=== PATIENT | female | born 1985 | race Caucasian/White ===

== ENCOUNTER → 2017-07-23 16:03 | Outpatient (CLI) | payer MEDICAID, SELFPAY | PROVIDERS: PCP Obstetrics & Gynecology; Visit Provider Obstetrics & Gynecology | DX: Z34.90 Encounter for supervision of normal pregnancy, unspecified, unspecified trimester (principal) | CPT/HCPCS: 86403 ==

== ENCOUNTER → 2017-08-12 10:48 | Outpatient (CLI) | payer MEDICAID, SELFPAY ==
[2017-08-12 10:51] LABS: Microscopic, Urine URINE MICROSCOPIC (MICROSCOPIC)
[2017-08-12 11:12] LABS: Basophils % 0.3 % (0.1-2.0); Eosinophils # 0.1 K/mm3 (0.0-0.4); Hematocrit 36.4 % (37.0-47.0); Hemoglobin 12.2 g/dL (12.2-16.2); Lymphocytes # 1.9 K/mm3 (0.7-4.5); Lymphocytes % 19.3 K/mm3 (10-50); Mean Corpuscular HGB Conc 33.4 g/dL (31.8-35.4); Mean Corpuscular Hemoglobin 27.9 pg (27.0-31.2); Mean Corpuscular Volume 83.6 fl (81-99); Mean Platelet Volume 9.2 fl (7.4-10.4); Monocytes # 0.4 K/mm3 (0.1-1.0); Monocytes % 4.3 % (1.7-9.3); Neutrophils # 7.3 K/mm3 (1.8-7.8); Neutrophils % 75.2 % (37.0-80.0); Platelet Count 196 K/mm3 (142-424); Red Blood Count 4.36 M/mm3 (4.20-5.40); Red Cell Distribution Width 13.8 % (11.5-17.5); White Blood Count 9.7 K/mm3 (4.8-10.8)
[2017-08-12 11:13] LABS: Appearance,Urine CLEAR (Clear); Bilirubin,Urine Negative (Negative); Blood, Urine Negative (Negative); Color,Urine YELLOW (Yellow); Glucose,Urine (UA) Negative (Negative); Ketones,Urine Negative (Negative); Leukocyte Esterase,Urine Negative (Negative); Nitrate,Urine Negative (Negative); Protein,Urine Negative (Negative); Specific Gravity, Urine 1.015 (1.005-1.030); Urobilinogen,Urine 0.2 EU/dl (0.2)
[2017-08-12 11:30] LABS: Bacteria,Urine Trace /lpf; RBC,Urine Occasional #/hpf (0-3); Squamous Epithelial Cell,Urine Occasional #/hpf (0-5)
[2017-08-12 13:12] LABS: Alanine Aminotransferase 25 U/L (12-78); Albumin Level 2.4 gm/dL (3.4-5.0); Albumin/Globulin Ratio 0.6 (1.1-1.8); Alkaline Phosphatase 170 U/L (46-116); Anion Gap 13.1 mEq/L (5-15); Aspartate Amino Transferase 15 U/L (15-37); Bilirubin,Total 0.3 mg/dL (0.2-1.0); Blood Urea Nitrogen 8 mg/dL (7-18); Calcium 8.3 mg/dL (8.5-10.1); Carbon Dioxide 24 mmol/L (21.0-32.0); Chloride 104 mmol/L (98-107); Creatinine,Serum 0.64 mg/dL (0.55-1.02); Estimated Glomerular Filt Rate 106 ml/min (>60); GFR (African American) 129 ML/MIN (>60); Globulin 4.3 gm/dl (1.3-3.2); Glucose 97 mg/dL (74-106); Potassium 4.1 mmoL/L (3.5-5.1); Sodium 137 mmol/L (136-145); Total Protein,Serum 6.7 gm/dL (6.4-8.2)
== END ==
PROVIDERS: PCP Family Medicine; Visit Provider Obstetrics & Gynecology
DX: O34.219 Maternal care for unspecified type scar from previous cesarean delivery (principal)
CPT/HCPCS: 36415; 80053; 81001; 85025

== ENCOUNTER 2017-08-19 04:58 | Inpatient (IN) | payer MEDICAID, SELFPAY ==
[2017-08-19 05:21] VITALS: BMI 30.2
[2017-08-19 05:47] LABS: Basophils # 0.1 K/mm3 (0-0.2); Basophils % 0.6 % (0.1-2.0); Eosinophils # 0.1 K/mm3 (0.0-0.4); Eosinophils % 1.3 % (0.1-12.0); Hematocrit 35.6 % (37.0-47.0); Lymphocytes # 2.4 K/mm3 (0.7-4.5); Lymphocytes % 25.3 K/mm3 (10-50); Mean Corpuscular HGB Conc 33.7 g/dL (31.8-35.4); Mean Corpuscular Hemoglobin 28.3 pg (27.0-31.2); Mean Corpuscular Volume 83.9 fl (81-99); Mean Platelet Volume 9.3 fl (7.4-10.4); Monocytes # 0.4 K/mm3 (0.1-1.0); Monocytes % 4.5 % (1.7-9.3); Neutrophils # 6.5 K/mm3 (1.8-7.8); Neutrophils % 68.2 % (37.0-80.0); Platelet Count 178 K/mm3 (142-424); Red Blood Count 4.24 M/mm3 (4.20-5.40); Red Cell Distribution Width 13.9 % (11.5-17.5); White Blood Count 9.6 K/mm3 (4.8-10.8)
[2017-08-19 05:49] VITALS: BP 133/99; PULSE 93; RESP 18; TEMP 36.9; O2SAT 99; BMI 30.5
[2017-08-19 08:15] VITALS: BP 122/74; PULSE 76; RESP 18; TEMP 36.2; O2SAT 99
--- NOTE | 2017-08-19 08:18 | HMH.OPNOTE ---
Date of procedure: 08/19/17 Pre-op Diagnosis:: 1. Term intrauterine . 2. Previous sections ?2. 3. Desire for sterilization. Post-op diagnosis:: other (Same, plus leiomyomata uteri. at 9/10, 5 lbs. 15 oz., 19.5 inch male , born at 0738.) Procedure performed:: Repeat low transverse cervical section and bilateral tubal ligation Surgeon:: Manolo Stock MD Brand Designer(s):: JUSTYN Grigsby TOURS CAPTAIN:: Josiah Galeana Anesthesia: spinal Estimated blood loss (mL): 400 Operative findings:: Term intrauterine . Multiple leiomyomata. Operative note:: After the patient was prepped and draped in usual fashion and spinal anesthesia was administered, a low Pfannenstiel incision was made through the previous incision, and the fat and fascia were in the usual fashion, bleeders being clamped and coagulated along the way. The peritoneum was entered with Metzenbaum scissors, and extended above and below. The bladder peritoneum was sharply and bluntly dissected from the area of incision, and the bladder was protected with a bladder blade. The uterus was entered in a low transverse fashion with a knife, and the incision was extended bluntly, bilaterally. The amniotic sac was ruptured for clear fluid. The baby was found to be in the LOT position of the vertex and, with appropriate fundal pressure, the head was delivered. There was no meconium, nor was there a nuchal cord. The baby's nasal and oropharynx were bulb suctioned, and the baby cried spontaneously on the abdomen, as was delivered. The cord was clamped and cut, 3 vessels were noted to be within the cord, and cord blood was obtained. (Cord pH was unable to be obtained because the blood clotted.) the baby was handed into the arms of the attending logistics administrator, Dr. Dominguez, who assigned Apgars of 9 at 1 minute and 10 at 5 minutes to this 5 lbs. 15 oz., 19.5 inch male infant, born at 0738. The baby was then taken to the nursery in excellent condition. The placenta was delivered manually, intact. A ring forceps was used to assure adequate drainage to the cervix; this was then passed off the field, as a nonsterile instrument. The uterus was closed in 2 layers, the first a running locked suture of #1 Vicryl as an endometrial layer, followed by a running unlocked suture of #0 Vicryl as a myometrial layer, imbricating over the first. It should be noted that there were multiple leiomyomata on both the anterior and posterior surfaces of the uterus. The bladder peritoneum was closed with a running unlocked suture of 2-0 Vicryl. Blood and clots were then swept from the gutters, and the tubes and ovaries were inspected and found to be normal. The patient was again asked if you wish to proceed with tubal sterilization, and she concurred. Therefore, first the right tube and then the left was grasped in its midsection with a Mir clamp. The base of the 10th and a portion of each tube was crushed with a Jaja clamp, and ligated with 2-0 Vicryl. The intervening segment of each tube was then excised with Metzenbaum scissors, and the stumps coagulated with a Bovie. There was no undue bleeding. The peritoneum was grasped with 3 Jaja clamps, and closed with a running semi-locked suture of 0 Vicryl. The muscle was approximated with a running unlocked suture of 0 Vicryl. The fascia was closed with a running locked suture of #1 Vicryl. The subcutaneous fat and Shayy's fascia were closed with a running unlocked suture of 2-0 Vicryl. The skin was closed with a subcuticular suture of 3-0 Vicryl, and appropriately dressed. The sponge and needle count was correct. The estimated blood loss was 400 cc. The urine was clear in the Vance catheter. A pelvic examination at the close of the procedure expressed blood and clots from the involuting uterus, with IV Pitocin running. The patient held the procedure well, and was taken to PACU in excellent condition. Her blood type
[2017-08-19 08:20] VITALS: BP 122/74; PULSE 76; RESP 18; TEMP 36.2; O2SAT 99
--- NOTE | 2017-08-19 08:20 | P.PN_ITS ---
[facility] Anesthesia Record Part I Intake, IV Amount: 2,000 Estimated blood loss (mL): 400 Urine output (mL): 400 Blood Products used (#): none Blood Pressure: 122/74 SaO2: 99 Pulse Rate: 76 Respiratory Rate: 18 Temperature: 97.2 F Patient is:: Awake, Stable Stable to PACU at:: 08:15
--- NOTE | 2017-08-19 08:20 | HMH.ANESII ---
[facility] Anesthesia Record Part II Discharge Time: 08:45 Destination: Obstetric PACU nurse assessment reviewed?: Yes Patient Condition:: Good Anesthesia Complications:: None
[2017-08-19 08:25] VITALS: BP 121/70; PULSE 75; RESP 18; O2SAT 99
--- NOTE | 2017-08-19 08:25 | P.OP_ITS ---
Date of procedure: 08/19/17 Pre-op Diagnosis:: 1. Term intrauterine . 2. Previous sections ?2. 3. Desire for sterilization. Post-op diagnosis:: other (Same, plus leiomyomata uteri. at 9/10, 5 lbs. 15 oz., 19.5 inch male , born at 0738.) Procedure performed:: Repeat low transverse cervical section and bilateral tubal ligation Surgeon:: Manolo Stock MD College Administrator(s):: JUSTYN Grigsby BUSINESS DATA ANALYST:: Josiah Galeana Anesthesia: spinal Estimated blood loss (mL): 400 Operative findings:: Term intrauterine . Multiple leiomyomata. Operative note:: After the patient was prepped and draped in usual fashion and spinal anesthesia was administered, a low Pfannenstiel incision was made through the previous incision, and the fat and fascia were in the usual fashion, bleeders being clamped and coagulated along the way. The peritoneum was entered with Metzenbaum scissors, and extended above and below. The bladder peritoneum was sharply and bluntly dissected from the area of incision, and the bladder was protected with a bladder blade. The uterus was entered in a low transverse fashion with a knife, and the incision was extended bluntly, bilaterally. The amniotic sac was ruptured for clear fluid. The baby was found to be in the LOT position of the vertex and, with appropriate fundal pressure, the head was delivered. There was no meconium, nor was there a nuchal cord. The baby's nasal and oropharynx were bulb suctioned, and the baby cried spontaneously on the abdomen, as was delivered. The cord was clamped and cut, 3 vessels were noted to be within the cord, and cord blood was obtained. (Cord pH was unable to be obtained because the blood clotted.) the baby was handed into the arms of the attending network lead, Dr. Dominguez, who assigned Apgars of 9 at 1 minute and 10 at 5 minutes to this 5 lbs. 15 oz., 19.5 inch male infant, born at 0738. The baby was then taken to the nursery in excellent condition. The placenta was delivered manually, intact. A ring forceps was used to assure adequate drainage to the cervix; this was then passed off the field, as a nonsterile instrument. The uterus was closed in 2 layers, the first a running locked suture of #1 Vicryl as an endometrial layer, followed by a running unlocked suture of #0 Vicryl as a myometrial layer, imbricating over the first. It should be noted that there were multiple leiomyomata on both the anterior and posterior surfaces of the uterus. The bladder peritoneum was closed with a running unlocked suture of 2-0 Vicryl. Blood and clots were then swept from the gutters, and the tubes and ovaries were inspected and found to be normal. The patient was again asked if you wish to proceed with tubal sterilization, and she concurred. Therefore, first the right tube and then the left was grasped in its midsection with a Mir clamp. The base of the 10th and a portion of each tube was crushed with a Jaja clamp, and ligated with 2-0 Vicryl. The intervening segment of each tube was then excised with Metzenbaum scissors, and the stumps coagulated with a Bovie. There was no undue bleeding. The peritoneum was grasped with 3 Jaja clamps, and closed with a running semi -locked suture of 0 Vicryl. The muscle was approximated with a running unlocked suture of 0 Vicryl. The fascia was closed with a running locked suture of #1 Vicryl. The subcutaneous fat and Shayy's fascia were closed with a running unlocked suture of 2-0 Vicryl. The skin was closed with a subcuticular suture of 3-0 Vicryl, and appropriately dressed. The sponge and needle count was correct. The estimated blood loss was 400 cc. The urine was clear in the Vance cat
[2017-08-19 08:35] VITALS: BP 133/76; PULSE 75; RESP 18; O2SAT 100
[2017-08-19 08:45] VITALS: BP 127/72; PULSE 77; RESP 18; TEMP 36.3; O2SAT 100
--- NOTE | 2017-08-19 10:36 | SUR.OPER ---
Addendum entered by Rosalinda Carrero RN 08/19/17 10:38: Original Note: TIME OF -0738 APGARS-9/10 FOR COLOR CORD PH UNOBTAINIBLE DUE TO SMALL AMOUNT OF CORD BLOOD. DR LEÓN NOTIFIED @ [id number]
[2017-08-19 20:12] LABS: Microscopic,Cath URINE MICROSCOPIC (MICROSCOPIC)
[2017-08-19 20:27] LABS: Appearance,Urine/Cath CLEAR (Clear); Bilirubin,Cath Negative (Negative); Blood, Urine/Cath Negative (Negative); Color,Urine/Cath YELLOW (Yellow); Glucose,Urine/Cath (UA) Negative (Negative); Ketones,Urine/Cath Negative (Negative); Leukocyte Esterase,Cath Negative (Negative); Nitrate,Cath Negative (Negative); PH,Urine/Cath 6.5 (5.0-8.5); Protein,Urine/Cath Negative (Negative); Urobilinogen,Cath 0.2 EU/dl (0.2)
--- NOTE | 2017-08-20 06:06 | HMH.ACPN2 ---
Internal Medicine - PN: Subj *Date: 08/20/17 *Time: 06:06 (This is /postop day #1. The patient is afebrile. Vital signs stable. Wound clean. Abdomen soft. Lochia normal. Uterine fundus involuting well. Nursing well. Impression: Stable.) Exam Vital signs and Labs for Last 24 Hours: Temp Pulse Resp BP Pulse Ox 97.3 F L 77 18 127/72 100 08/19/17 08:45 08/19/17 08:45 08/19/17 08:45 08/19/17 08:45 08/19/17 08:45 Laboratory Results - last 24 hr 08/19/17 05:30: Blood Type O Positive, Antibody Screen Negative 08/19/17 : Urine Color Yellow, Urine Appearance Clear, Urine pH 6.5, Ur Specific [place] 1.010, Urine Protein Negative, Urine Glucose (UA) Negative, Urine Ketones Negative, Urine Blood Negative, Urine Nitrate Negative, Urine Bilirubin Negative, Urine Urobilinogen 0.2, Ur Leukocyte Esterase Negative, Urine RBC None, Urine WBC None, Ur Squamous Epith Cells None, Urine Bacteria None I & O for Last 24 hours: Intake & Output 08/17/17 08/18/17 08/19/17 08/20/17 11:59 11:59 11:59 11:59 Intake Total 1999 Balance 1999 Weight 178 lb
[2017-08-20 07:17] LABS: Hematocrit 30.9 % (37.0-47.0); Hemoglobin 10.2 g/dL (12.2-16.2)
--- NOTE | 2017-08-20 11:01 | HMH.PHAVTE ---
[facility] Pharmacy VTE Monitoring - Patient Demographics Admission date: 08/19/17 Report Date: 08/20/17 Time: 11:01 Allergies/Adverse Reactions: Patient Allergies NO KNOWN ALLERGIES Allergy (Unknown, Uncoded 08/12/17 10:06) Height: 1.63 m Weight: 80.739 kg - VTE Risk Labs: VTE Related Lab Results Hgb 10.2 g/dL (12.2-16.2) L 08/20/17 06:30 Hct 30.9 % (37.0-47.0) L 08/20/17 06:30 Plt Count 178 K/mm3 (142-424) 08/19/17 05:30 - Prophylaxis VTE Prophylaxis Ordered?: Yes Types of VTE Prophylaxis: IPCS Knee High Location of Applied Device: Bilateral Lower Extremeties
--- NOTE | 2017-08-21 08:03 | HMH.ACPN2 ---
Internal Medicine - PN: Subj *Date: 08/21/17 *Time: 08:03 (This is /postop day #2. The patient afebrile. Vital signs stable. Wound clean. Abdomen soft. Lochia normal. Uterine fundus involuting well. Nursing well. Hemoglobin 10.2 g, but clinically stable. Impression: Stable.) Exam Vital signs and Labs for Last 24 Hours: Temp Pulse Resp BP Pulse Ox 97.3 F L 77 18 127/72 100 08/19/17 08:45 08/19/17 08:45 08/19/17 08:45 08/19/17 08:45 08/19/17 08:45 I & O for Last 24 hours: Intake & Output 08/18/17 08/19/17 08/20/17 08/21/17 11:59 11:59 11:59 11:59 Intake Total 1999 Balance 1999 Weight 178 lb 178 lb
--- NOTE | 2017-08-21 08:10 | PC.NURSE ---
DR. LEÓN IN TO DO AM ROUNDS
[2017-08-21 08:18] VITALS: BP 134/81; PULSE 110; RESP 18; TEMP 36.7; O2SAT 98
--- NOTE | 2017-08-22 06:29 | HMH.ACPN2 ---
Internal Medicine - PN: Subj *Date: 08/22/17 *Time: 06:29 (This is day #3. The patient is afebrile. Vital signs stable. Wound clean. Abdomen soft. Lochia normal. She will be discharged today.) Exam Vital signs and Labs for Last 24 Hours: Temp Pulse Resp BP Pulse Ox 98.1 F 110 H 18 134/81 98 08/21/17 08:18 08/21/17 08:18 08/21/17 08:18 08/21/17 08:18 08/21/17 08:18 I & O for Last 24 hours: Intake & Output 08/19/17 08/20/17 08/21/17 08/22/17 11:59 11:59 11:59 11:59 Intake Total 1999 Balance 1999 Weight 178 lb 178 lb
--- NOTE | 2017-08-22 06:34 | P.DS_ITS ---
General - General Admission date: 08/19/17 Discharge date: 08/22/17 (This 32-year-old 3, now para 3, Ab0 white female was admitted at 39 weeks of gestation for repeat section. On the date of admission, she was taken to the operating room, where she underwent that procedure under spinal anesthesia, without complications. The baby was an 9/10, 5 lbs. 15 oz., 19.5 inch male , born at 0738 on 08/19/[birth year]. The baby is breast-feeding, has been circumcised, and is done well. During surgery multiple leiomyomata were encountered and noted. The patient underwent a bilateral tubal ligation as part of her procedure. , the patient is doing well. She is eating and ambulating, and has had a bowel movement. Her wound is clean. Her abdomen is soft. Her lochia is normal. Her uterine fundus is involuting well. She is not a smoker. Her hemoglobin is 10.8 g, but she is clinically stable. She is being discharged home on the third / postoperative day on iron and vitamins, and on Tylenol and Motrin, as needed for pain. She is given appropriate instructions as to diet, exercise, and wound care, and she is to return to the office in 2 weeks for follow-up. Her blood type is O+. Her rubella titer is immune.) Objective Vital signs: Temp Pulse Resp BP Pulse Ox 98.1 F 110 H 18 134/81 98 08/21/17 08:18 08/21/17 08:18 08/21/17 08:18 08/21/17 08:18 08/21/17 08:18 Discharge Plan - Patient Discharge Instructions - Follow up Plan Home Medications: Home Medications Medication Instructions Recorded Confirmed Type ferrous sulfate 325 mg (65 mg 325 mg PO DAILY tab 07/05/17 08/19/17 History iron) tablet loratadine 10 mg disintegrating 1 tab PO DAILYP PRN tab 07/05/17 08/19/17 History tablet 1 tab PO DAILY each 07/05/17 08/19/17 History vitamin,calcium,saydgohw-drva-nstoh acid tablet Prescriptions/Medication Reconciliation: No Action ferrous sulfate 325 mg (65 mg iron) tablet 325 mg PO DAILY tab loratadine 10 mg disintegrating tablet 1 tab PO DAILYP PRN tab PRN Reason: ALLERGIES vitamin,calcium,kueoykmr-trsh-lzeha acid tablet 1 tab PO DAILY each
== END 2017-08-22 11:20 | disposition home or self-care (01) | DRG 766 ==
PROVIDERS: Admitting Provider Obstetrics & Gynecology; Family Provider Family Medicine; PCP Nurse Anesthetist, Certified Registered; Visit Provider Obstetrics & Gynecology
PROC: 10D00Z1 Extraction of Products of Conception, Low, Open Approach (ICD-10-PCS; CPT 59514; principal; 2017-08-19 07:30)
DX: O34.211 Maternal care for low transverse scar from previous cesarean delivery (principal); N85.8 Other specified noninflammatory disorders of uterus; Z3A.39 39 weeks gestation of pregnancy; Z37.0 Single live birth; Z30.2 Encounter for sterilization
CPT/HCPCS: 59514; 58611; 36415; 59025; 81001; 82800; 85014; 85018; 85025; 86850; 88302; 88305; 96360; J2405

== ENCOUNTER → 2022-02-09 09:19 | Outpatient (CLI) | payer BC, SELFPAY ==
--- NOTE | 2022-02-09 09:21 | US_ITS ---
FINAL REPORT CLINICAL HISTORY: RUQ PAIN FINDINGS: Sonographic images of the right upper quadrant were obtained. The pancreas is partially obscured.The liver has an unremarkable appearance. There is a gallstone in the gallbladder. The gallbladder wall is borderline thickened at 4 mm. There is no evidence of biliary ductal dilatation.The common duct measures 3 mm. Limited images of the right kidney are unremarkable. IMPRESSION: Gallstone with borderline gallbladder wall thickening. Reviewed, Interpreted and Dictated by Franck Romero III, MD Transcribed by Gilmar Jenkins Authenticated and [facility]
== END ==
PROVIDERS: PCP Family Medicine; Visit Provider Physician Assistant
DX: R10.11 Right upper quadrant pain (principal)
CPT/HCPCS: 76705

== ENCOUNTER → 2022-04-10 08:06 | Outpatient (CLI) | payer BC, SELFPAY ==
[2022-04-10 09:15] LABS: Basophils # 0.1 K/mm3 (0-0.2); Basophils % 0.9 % (0.1-2.0); Eosinophils # 0.1 K/mm3 (0.0-0.4); Eosinophils % 2.5 % (0.1-12.0); Hematocrit 37.7 % (37.0-47.0); Hemoglobin 11.8 g/dL (12.2-16.2); Lymphocytes % 18.2 % (10-50); Mean Corpuscular HGB Conc 31.4 g/dL (31.8-35.4); Mean Corpuscular Volume 76.3 fl (81-99); Mean Platelet Volume 8.5 fl (7.4-10.4); Monocytes # 0.4 K/mm3 (0.1-1.0); Monocytes % 7.5 % (1.7-9.3); Neutrophils # 4.1 K/mm3 (1.8-7.8); Platelet Count 280 K/mm3 (142-424); Red Blood Count 4.94 M/mm3 (4.20-5.40); Red Cell Distribution Width 15.6 % (11.5-17.5); Urine Pregnancy, HCG Qual. Negative (Negative); White Blood Count 5.8 K/mm3 (4.8-10.8)
[2022-04-10 11:35] LABS: Chloride 104 mmol/L (98-107); Potassium 4.4 mmoL/L (3.5-5.1); Sodium 141 mmol/L (136-145)
[2022-04-10 11:38] LABS: Alanine Aminotransferase 20 U/L (12-78); Albumin Level 4.1 g/dl (3.5-5.0); Albumin/Globulin Ratio 1.2 (1.1-1.8); Alkaline Phosphatase 145 U/L (38-126); Anion Gap 13.4 mEq/L (5-15); Aspartate Amino Transferase 26 U/L (14-36); Bilirubin,Total 0.2 mg/dl (0.2-1.3); Blood Urea Nitrogen 10 mg/dl (7-17); Carbon Dioxide 28 mmol/L (22.0-30.0); Estimated Glomerular Filt Rate 94 ml/min (>60); GFR (African American) 113 ML/MIN (>60); Globulin 3.3 g/dL (1.3-3.2); Total Protein,Serum 7.4 g/dl (6.3-8.2)
[2022-04-10 11:39] LABS: Calcium 8.6 mg/dl (8.4-10.2); Glucose 95 mg/dl (74-100)
== END ==
PROVIDERS: PCP Family Medicine; Visit Provider Surgery
DX: Z01.812 Encounter for preprocedural laboratory examination (principal); Z20.822 Contact with and (suspected) exposure to COVID-19; K80.10 Calculus of gallbladder with chronic cholecystitis without obstruction
CPT/HCPCS: 36415; 80053; 81025; 85025; C9803; U0003; U0005

== ENCOUNTER 2022-04-12 06:43 | Day surgery (SDC) | payer BC, SELFPAY ==
[2022-04-09 13:57] VITALS: BMI 27.4
[2022-04-12] VITALS (13 sets, daily range): BP systolic 121–150; BP diastolic 74–89; PULSE 75–104; RESP 16–22; TEMP 36.4–43; O2SAT 95–98
--- NOTE | 2022-04-12 07:24 | P.PN_ITS ---
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 current occupational exposures/hazards: No [facility] Anesthesia Checklist Structural Data Planned Operative Procedure/s: Lap Becky Consent for Planned Operative Procedure(s) Verified: Yes Verified Documents: Surgical Consent and History and Physical NPO Status Verified Time NPO: 00:00 Additional verifications Anesthesia Reactions: No Hx Blood Transfusions: No Blood Transfusion Reaction: No Airway Assessment C-Spine Mobility Assessed: Yes TMJ Mobility Assessed: Yes Dentition: Good Dentition Neurological Assessment Level of Consciousness: Awake and Alert Anesthesia Plan Anesthesia Risk discussed: Yes Anesthesia Plan: Verified ASA Class: I Anesthesia Type: General
--- NOTE | 2022-04-12 09:53 | EXP.OP.NOTE ---
Date of procedure: 04/12/22 Pre-op Diagnosis:: Chronic calculus cholecystitis Post-op Diagnosis:: Same Procedure performed:: Laparoscopic cholecystectomy Surgeon:: Rk Pickens MD Anesthesia: GETJo Ann Estimated blood loss (mL): 15 Operative findings:: Infundibular thickening Operative note:: After informed consent was obtained, the patient was taken to the operating room and placed in the supine position. General anesthesia was induced and the abdomen was prepped and draped in a sterile fashion. After infiltration with local anesthetic an infraumbilical incision was made. A Veress needle was placed in position. The abdomen was insufflated. A 5 mm optical trocar was placed in position. Under direct visualization, a 12 mm trocar was placed in the subxiphoid position and 2 additional 5 mm trocars were placed in the right upper quadrant. The gallbladder was elevated up and over the liver margin. The tissue around the cystic duct was carefully dissected. 3 clips were placed proximally and the duct was transected with harmonic laly. Harmonic laly were then utilized to dissect the gallbladder away from the liver margin with careful attention to the control of the cystic artery. The gallbladder was placed in a retrieval bag and removed through the subxiphoid trocar site. The right upper quadrant was thoroughly irrigated. No active bleeding or bile leak was noted. Fascia at the subxiphoid trocar site was reapproximated utilizing the NeoClose device. The remaining trocars were removed. All wounds were irrigated and skin was closed with 4-0 Monocryl in a subcuticular fashion. Steri-Strips were applied. The patient's anesthetic agents were reversed and extubation was completed prior to transfer to recovery in stable condition. Condition: stable Disposition: PACU Specimens:: Gallbladder and contents Complications:: No immediate
--- NOTE | 2022-04-12 10:09 | EXP.ANES.I ---
[facility] Anesthesia Record Part I Anesthesia Record I Intake, IV Amount: 900 Estimated blood loss (mL): 10 Urine output (mL): 0 Blood Products used (#): none Blood Pressure: 121/74 SaO2: 95 Pulse Rate: 104 Respiratory Rate: 22 Temperature: 98.9 F Patient is:: Drowsy and Stable Stable to PACU at:: 10:01
--- NOTE | 2022-04-12 10:42 | SUR.PHASEI ---
1032-detailed report called to BIBI Eddy 1034-pt transported to post op via stretcher w/dominik rails up and left in care of BIBI Eddy with bed locked in lowest position, vss, pt stable
--- NOTE | 2022-04-13 09:21 | P.PNANES_ITS ---
[facility] Anesthesia Record Part II Anesthesia Record Part II Discharge Time: 10:31 Destination: Surgical Day Care (OP Surgery) PACU nurse assessment reviewed?: Yes Patient Condition:: Good Anesthesia Complications:: None Swallowing reflex intact?: Yes Cyanosis?: No Blood Pressure: 130/89 Pulse Rate: 81 Temperature: 97.6 F Mental Status: Alert & Oriented Pain level:: 3 Nausea and/or vomitting:: None Intake, IV Amount: 0
[2022-04-13 09:22] VITALS: BP 130/89; PULSE 81; TEMP 36.4
== END 2022-04-12 11:30 | disposition home or self-care (01) ==
PROVIDERS: PCP Family Medicine; Visit Provider Surgery
PROC: 0FT44ZZ Resection of Gallbladder, Percutaneous Endoscopic Approach (ICD-10-PCS; CPT 47562; principal; 2022-04-12 08:15)
DX: K80.10 Calculus of gallbladder with chronic cholecystitis without obstruction (principal)
CPT/HCPCS: 47562; 88304; 96374; J2405

== ENCOUNTER 2022-07-11 13:54 | Emergency (ER) | payer BC, SELFPAY ==
--- NOTE | 2022-07-11 14:02 | EXP.UTC ---
Discharge Plan Disposition Patient Disposition: Home, Self-Care Condition: Good Prescriptions Prescriptions: New azithromycin [Zithromax] 250 mg tablet 250 mg PO UD DOSE PK Qty: 6 0RF Rx Instructions: Take two (2) tablets today, then one (1) tablet days #2 thru #5 benzonatate [benzonatate] 100 mg capsule 100 mg PO TIDP PRN (Reason: Cough) Qty: 30 0RF methylprednisolone 4 mg Tablets,Dose Pack 4 mg PO DIRECTED Qty: 21 0RF No Action loratadine [Allergy Relief (loratadine)] 10 mg tablet 10 mg PO DAILY Referrals Follow up/Referrals: Nii Dominguez MD [Primary Care Provider] - See instructions Activity Restrictions/Add. Instructions Additional Instructions/Restrictions: Drink plenty of fluids. Take tylenol or ibuprofen for pain or fever. Take the medications as directed. Follow up with your regular doctor. GO TO THE ER FOR ANY WORSENING SYMPTOMS Clinical Impressions Clinical Impression: Pharyngitis, Acute viral syndrome Stand Alone Forms Stand Alone Forms: Work/School Release Instructions Patient Instructions: DI for Pharyngitis/Tonsillopharyngitis -- Adult, DI for Viral Syndrome Discharge ED Provider: Aric Blunt [facility] General Stated complaint: sore throat, ear pain Time Seen by Provider: 07/11/22 14:01 History of Present Illness Provider Complaint: She c/o sore throat, malaise, chills, and low grade fever for the past 2 days. She has a nonproductive cough also. Related Data Home Medications Medication Instructions Recorded Confirmed loratadine 10 mg tablet (Allergy 10 mg PO DAILY allergies 11/23/19 04/20/22 Relief (loratadine)) Previous Rx's Medication Instructions Recorded azithromycin 250 mg tablet 250 mg PO UD DOSE PK #6 tabs 07/11/22 (Zithromax) benzonatate 100 mg capsule 100 mg PO TIDP PRN Cough #30 caps 07/11/22 methylprednisolone 4 mg tablets in 4 mg PO DIRECTED #21 tabs 07/11/22 a dose pack Allergies Allergy/AdvReac Type Severity Reaction Status Date / Time No Known Allergies Allergy Verified 04/20/22 10:01 [facility] Disclaimer: The information contained in this section may have been updated after the patient was seen, as this information can be updated by other users. Medical History Allergies Anxiety Gallbladder disease Sinus headache Surgical History History of History of laparoscopic cholecystectomy [place] teeth removed Family History Family/Other History of cancer Diabetes Heart attack Heart disease Father Heart attack Heart disease Social History Smoking Status: Former smoker years smoked: 7 smoking status stop date: 2016 second hand exposure: No alcohol intake: current substance use type: denies use current occupational status: employed Travel in the last 8 weeks: None household members: spouse and children housing: house marital status: current occupation: [employer] current occupational exposures/hazards: No ROS Obtained: Yes All systems reviewed & no additional complaints except as documented Constitutional Constitutional: Reports chills and Reports fever(s) Eyes Eyes: Denies eye discharge ENT Ears, Nose, Mouth, and Throat: Reports as per HPI Cardiovascular Cardiovascular: Denies chest pain Respiratory Respiratory: Denies chest congestion and Reports cough Gastrointestinal Gastrointestingal: Reports nausea; Denies abdominal pain, constipation, cramping, diarrhea or vomiting Musculoskeletal Musculoskeletal: Denies arthralgias Integumentary/Breasts Skin/Breast: Denies rash Neurologic Neurologic: Denies paresthesias Physical Exam General General appearance: alert and in no apparent distress Head Head exam: atraumatic,
[2022-07-11 14:16] LABS: UTC Strep Screen (Rapid) Negative (Negative)
[2022-07-11 14:30] VITALS: BP 159/99; PULSE 90; RESP 19; TEMP 36.6; O2SAT 98; BMI 27.4
[2022-07-11 14:55] VITALS: BP 159/99; PULSE 90; RESP 19; TEMP 36.6; O2SAT 98
== END 2022-07-11 14:55 | disposition home or self-care (01) ==
PROVIDERS: Emergency Provider Nurse Practitioner Family; PCP Family Medicine
DX: J02.9 Acute pharyngitis, unspecified (principal); B34.9 Viral infection, unspecified
CPT/HCPCS: 87880; 99212; 99213; G0463

== ENCOUNTER 2024-07-03 13:49 | Emergency (ER) | payer BC, SELFPAY ==
[2024-07-03 15:05] VITALS: BP 144/78; PULSE 77; RESP 17; TEMP 36.8; O2SAT 100; BMI 30.9
[2024-07-03 15:17] LABS: UTC Strep Screen (Rapid) Negative (Negative)
--- NOTE | 2024-07-03 15:24 | ED_ITS ---
Discharge Plan Disposition Patient Disposition: Home, Self-Care Condition: Good Prescriptions Prescriptions: New amoxicillin 500 mg capsule 500 mg PO BID 10 Days Qty: 20 0RF Referrals Follow up/Referrals: Nii Dominguez MD [Primary Care Provider] - See instructions Activity Restrictions/Add. Instructions Additional Instructions/Restrictions: *Monitor Temp, Over the counter Motrin or Tylenol as directed/as needed Tylenol every 4 hours and Motrin every 6 hours (as long as your family doctor has told you that you can take it) for fever or pain. and straight to ER if unable to lower temp less than 101.0 after medication given *Warm salt water gargles may help to soothe the throat *Throat Lozenges? *Warm fluids like tea with honey may help to soothe the throat? *Sleep elevated *Humidifier/Vaporizer *Your throat swab was sent for culture. Those results are typically sent to your primary care. Be sure to follow up in 2-3 days with your family doctor/primary care physician if no improvement so they can review those result and treat if necessary. If you don?t have a primary care doctor, I recommend you get one but in the mean time, you will have to return to a walk in clinic Follow up IMMEDIATELY for new or worsening symptoms or no Noticeable improvement over the next 48-72 hours. 911 for difficulty breathing or swallowing Clinical Impressions Clinical Impression: Pharyngitis Instructions Patient Instructions: Sore Throat Print Language Print Language: Kinyarwanda Discharge ED Provider: Melinda Soriano [facility] General Stated complaint: sore throat, swollen glands Mode of Arrival: Ambulatory Source of Information: Patient Limitations: No Limitations Time Seen by Provider: 07/03/24 15:15 Description of Symptoms (Recalled from Triage Doc. by RN): PATIENT C/O SORE THROAT X 2 DAYS HEENT Symptoms (Recalled from RN notes): Yes Resp Symptoms (Recalled from RN notes): No Skin Symptoms (Recalled from RN notes): No MS Symptoms (Recalled from RN notes): No Functional Status (Recalled from RN notes): WNL History of Present Illness Provider Complaint: Patient states that she was exposed to strep throat and for the last couple of days she has been having sore throat, and swollen lymph nodes States feels like it does when she has strep throat so she came in Related Data Previous Rx's ?Medication ?Instructions ?Recorded amoxicillin 500 mg capsule 500 mg PO BID 10 days #20 caps 07/03/24 Allergies Allergy/AdvReac Type Severity Reaction Status Date / Time No Known Allergies Allergy Verified 10/24/23 08:43 Worker's Comp Is this a Worker's Comp case?: No [facility] Disclaimer: The information contained in this section may have been updated after the patient was seen, as this information can be updated by other users. Medical History Anxiety Sinus headache Gallbladder disease Allergies Surgical History History of laparoscopic cholecystectomy Daisy teeth removed History of X2 Family History Family/Other History of cancer Diabetes Heart attack Heart disease Father Heart attack Heart disease Social History Smoking Status: Former smoker tobacco type: cigarettes packs per day: 0 years smoked: 7 smoking status stop date: 2016 second hand exposure: No alcohol intake: current alcohol intake frequency: other substance use type: denies use current occupational status: employed Travel in the last 8 weeks: None household members: spouse and children housing: house marital status: 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 current occupational exposures/hazards: No Have you lived/traveled outside US in past 30 days?: No Contact w/someone who lives/traveled outside US past 30 days?: No Exposure to someone with infectious disease in past 14 days?: No Do you have a fever (greater than 100.4 F or 38 C)?: No Have you tested positive for COVID-19: No Exposed to someone with COVID-19 in past 14 days?: No Do you have a sore throat?: Yes Do you have a cough?: No Do you have any weakness?: No Do you have any diarrhea?: No Are you experiencing any unusual bleeding?: No Do you have any muscle aches/pain?: No Do you have any abdominal pain?: No Are you experiencing loss of taste or smell?: No ROS Obtained: Yes All systems reviewed & no additional complaints except as documented and Yes Systems reviewed as appropriate & no additional complaints except as documented Constitutional Constitutional: Reports system reviewed and no additional complaints, except as documented and Reports as per HPI ENT Ears, Nose, Mouth, and Throat: Reports system reviewed and no additional complaints, except as documented, Reports as per HPI and Reports sore throat Cardiovascular Cardiovascular: Reports system reviewed and no additional complaints, except as documented and Reports as per HPI Respiratory Respiratory: Reports system reviewed and no additional complaints, except as documented and Reports as per HPI Gastrointestinal Gastrointestingal: Reports system reviewed and no additional complaints, except as documented and as per HPI Physical Exam General General appearance: alert and in no apparent distress ENT ENT exam: Present mucous membranes moist Expanded ENT Exam Throat exam: Present tonsillar erythema Respiratory Respiratory exam: Present normal lung sounds bilaterally; Absent respiratory distress or wheezes Cardiovascular Cardiovascular exam: Present regular rate, normal rhythm and normal heart sounds Abdominal Exam Abdominal exam: Present soft and normal bowel sounds; Absent distention or tenderness Neurological Exam Neurological exam: Present alert, oriented X3 and normal gait Medical Decision Making Medical Records Screening: Per USPSTF and CDC recommendations, given the prevalence of disease in our region, it is our hospital?s policy to screen for HIV and viral Hepatitis for all patients aged 18 and over and those with ongoing risk factors. Jacky Inquiry Pt receiving controlled substance: No Jacky was queried for this patient: No Vital Signs: 07/03/24 15:05 Temperature 98.3 F Temperature Source Oral Pulse Rate [Left Brachial] 77 Respiratory Rate 17 Blood Pressure [Left Arm] 144/78 H Blood Pressure Mean [Left Arm] 100 Blood Pressure Source [Left Arm] Automatic Cuff Blood Pressure Position [Left Arm] Sitting 02 Sat by Pulse Oximetry 100 Oxygen Delivery Method Room Air Lab Data Lab results reviewed: Yes I reviewed the patient's lab results. Lab Results 07/03/24 14:55: Strep Scn Rapid Clinic Negative Orders (Tests/Meds): ORDERS Category Date Time Status Strep Screen Confirmation Stat Micro 07/03/24 14:55 Received
[2024-07-03 15:29] VITALS: BP 144/78; PULSE 77; RESP 17; TEMP 36.8; O2SAT 100
== END 2024-07-03 15:33 | disposition home or self-care (01) ==
PROVIDERS: Emergency Provider Nurse Practitioner; PCP Family Medicine
DX: J02.9 Acute pharyngitis, unspecified (principal)
CPT/HCPCS: 87880; 99213; G0381

== ENCOUNTER 2025-03-17 12:51 | Outpatient (CLI) | payer BC, SELFPAY ==
--- OUTSIDE RECORDS SUMMARY | 2024-05-26 07:05 | XMS_ITS ---
[facility] Address [address] [facility] [address] [place] [id number] Care Team Providers Care Commercial Analyst Name Role Phone Rosalia Guzman Primary Care Provider Christiana Rodgers Unavailable [phone] Allergies No Known Allergies Results Component Value Reference Range Notes Influenza Screen (in house) Reviewed date:05/26/2024 03:38:37 PM Interpretation:pos Flu A Performing Lab: Notes/Report: pos Flu A results pos Flu A Rapid Strep- Inhouse Reviewed date:05/26/2024 03:38:47 PM Interpretation:neg Performing Lab: Notes/Report: neg strep test neg Covid test (in house) Reviewed date:05/26/2024 03:38:26 PM Interpretation:neg Performing Lab: Notes/Report: neg Result: neg REASON FOR VISIT fever, congestion Medications Medication SIG (Take, Route, Frequency, Duration) Notes Start Date End Date Status Cortisporin-TC 3.3-3-10-0.5 MG/ML 5 drops into affected ear Otic Three times a day 02/26/2024 Active Magnesium 250 MG 1 tablet with a meal Orally Once a day; Duration: 30 day(s) Active Multivitamin Women - as directed Orally Active Loratadine 10 MG 1 tab(s) orally once a day Active Fluticasone Propionate 50 MCG/ACT 1 spray(s) intranasally twice daily 12/09/2017 Active Tamiflu 75 MG 1 capsule Orally Twi ce a day; Duration: 5 day(s) 05/26/2024 Active Vital Signs Blood pressure systolic 130 mm Hg 05/26/20 24 Blood pressure diastolic 80 mm Hg 024 Heart Rate 98 /min 05/26/2024 Height 65 in 05/26/2024 Weight 175.6 lbs 05/26/2024 BMI 29.22 kg/m2 05/26/2024 Encounters Encounter Location Date Provider Diagnosis [facility] [address] 36 [facility] [address] [place] [id number] 05/26/2024 Christiana Rodgers Influenza A J10.1 Assessments Encounter Date Diagnosis (ICD Code) Assessment Notes Treatment Notes Treatment Clinical Notes Section Notes 05/26/2024 Influenza A (ICD-10 - J10.1) fluids, rest, supportive measures for fever/symptom relief Plan Of Treatment Medication Medication Name Sig Start Date Stop Date Notes Tamiflu 75 MG 1 capsule Orally Twi ce a day; Duration: 5 day(s) 05/26/2024 Treatment Notes Assessment Notes Influenza A fluids, rest, suppor tive measures for fever/symptom relief Next Appt Details Follow Up: prn, Reason: Provider Name:Nii Barrera ry, 04/14/2025 10:15:00 AM, [address] [facility] 36 [facility], [address], [place], [id number], Progress Notes * NORMA CARBALLOOB:1985 (39 yo F)Acc No.[id number]:05/26/2024 Progress Notes Patient: Herbert NORTHROXIEY Provider: JACQUE Han :1985 A ge:38 Y S ex:Female Date:05/26/2024 Address:[address] [place] [address] [place], [id number] Pcp:Rosalia Guzman Subjective: * Chief Complaints: * 1 . Fever, congestion. * HPI: E NT/respiratory: 38 year old female presents with c/o cough. c/o nasal congestion. c/o Fever. c/o facial pain/pressure. c/o Short of Breath. c/o headache. c/o body aches. Denies : sore throat. D enies : ear pain. D enies : Chest Pain. D enies : smoking. Pt sts her symptoms started late Saturday night; is eating and drinking. * ROS: D ERMATOLOGY: no R fernando. n o H ibrahima. G ASTROENTEROLOGY: no N ausea. n o V omiting. n o D iarrhea.? U ROLOGY: no D ifficulty urinating. n o B lood in urine. * Medical History: K nee problems, Allergic rhinitis. * Surgical History: n one . * Hospitalization/Major Diagno stic Procedure: H ER - Allergies . * Family History: F ather: alive. M other: alive. P aternal Grand Father: . P aternal Grand Mother: . M aternal Grand Father: . M aternal Grand Mother: alive. 4 brother(s) , 1 sister(s) . . 1 brother -electric accident. * Social History: C affeine: yes, frequency:. Home smoke detector use: yes. Marital Status: . 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 Past smoking status: no, h/o smoking x 4-5 years. Alcohol: Yes, occasionally, Beer. Sexually active: no.. Travel ouside [place]: no. * Medications: T aking Magnesium 250 MG Tablet 1 tablet with a meal Orally Once a day , Taking Multivitamin Women - Tablet as directed Orally , Taking Loratadine 10 MG Tablet 1 tab(s) orally once a day , Taking Fluticasone Propionate 50 MCG/ACT Suspension 1 spray(s) intranasally twice daily , Taking Cortisporin-TC 3.3-3-10-0.5 MG/ML Suspension 5 drops into affected ear Otic Three times a day , Medication List reviewed and reconciled with the patient * Allergies: N .K.D.A. Objective: * Vitals: W t:175.6, Temp:98.6, BP:130/80, HR:98, O2 Sat:100% on RA, Nurse:HANNA, Ht: 65, BMI:29.22. * Examination: E NT/Respiratory: General Appearance: well nourished and hydrated NAD alert active. E yes: sclera and conjunctiva clear. E ars: auditory canals normal bilaterally tympanic membranes normal bilaterally. N ose : nares patent. O ral cavity : no erythema or exudate seen on pharynx. N tricia : supple no cervical lymphadenopathy.?Heart : RRR. L ungs: CTAB A&P. Assessment: * Assessment: 1. I bandar A - J10.1 (Primary) Plan: * Treatment: * Labs: * L ab: Covid test (in house) (Collection Date & Time - 05/26/2024) n eg Value Reference Range R esult: neg * Ivet Valerio 05/26/2024 11:5 9:37 AM > , Provider reviewed results while patient in office.Emperatriz Rodgersharine 05/26/2024 3:38:24 PM > ?Lab: Influenza Screen (in house) (Collection Date & Time - 05/26/2024)?pos Flu A* Value Reference Range r esults pos Flu A * Ivet Valerio 05/26/2024 11:5 6:56 AM > , Provider reviewed results while patient in office.Emperatriz Rodgersharine 05/26/2024 3:38:34 PM > ?Lab: Rapid Strep- Inhouse (Collection Date & Time - 05/26/2024)?neg* Value Reference Range s trep test neg * Ivet Valerio 05/26/2024 12:0 0:03 PM > , Provider reviewed results while patient in office.Emperatriz Rodgersharine 05/26/2024 3:38:44 PM > * Procedure Codes: 9 [address] [place], [address] Flu Test- Nasal Swab, Modifiers: QW , 40544 STREP A ASSAY W/OPTIC, Modifiers: QW , 79316 COVID TEST IN HOUSE, Modifiers: QW * Follow Up: p rn * Images: Billing Information: * Visit Code: 26727 Office Visit, Est Pt., Level 3. * Procedure Codes: [address] [place] [address] Flu Test- Nasal Swab. Modifiers: QW 51838 STREP A ASSAY W/OPTIC. Modifiers: QW 22979 COVID TEST IN HOUSE. Modifiers: QW * Electronic signature of Yenny Rodgers APRN on 03/17/2025 at 12:56 PM EDT Sign off status: Pending * Provider: JACQUE Han Date: 07/26/2023 Generated for Ayanna ng/Jim/eTransmitting on: 0 03/17/2025 12:56 PM EDT History and Physical Notes * HPI (History of Present Illness) Category Sub-Category Detail Notes Category Not es ENT/respiratory sore throat Pt sts her s ymptoms started late Saturday night; is eating and drinking facial pain/pressure ear pain Short of Breath Chest Pain cough Fever headache nasal congestion smoking body aches Examination Category Sub-Category Detail Notes Category Not es ENT/Respiratory Oral cavity : no erythema or exudate s een on pharynx Ears: auditory canals norm al bilaterally tympanic membranes normal bilaterally Neck : supple no cervical l ymphadenopathy Heart : RRR Lungs: CTAB A&P General Appearance: well nourished and h ydrated NAD alert active Nose : nares patent Eyes: sclera and conjuncti va clear
--- OUTSIDE RECORDS SUMMARY | 2024-08-11 05:00 | XMS_ITS ---
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 Gr. 1.025 Ketone neg Bili neg Gluc neg REASON FOR VISIT poss UTI Medications Medication SIG (Take, Route, Frequency, Duration) Notes Start Date End Date Status Multivitamin Women - as directed Orally Active Magnesium 250 MG 1 tablet with a meal Orally Once a day; Duration: 30 day(s) Active Fluticasone Propionate 50 MCG/ACT 1 spray(s) intranasally twice daily 12/09/2017 Active Loratadine 10 MG 1 tab(s) orally once a day Active Nitrofurantoin Monohyd Macro 100 MG 1 capsule with food Orally Two times a day 08/11/2024 Active Vital Signs Blood pressure systolic 130 mm Hg 08/11/19 25 Blood pressure diastolic 90 mm Hg 025 Heart Rate 109 /min 08/11/2024 Height 65 in 08/11/2024 Weight 178.4 lbs 08/11/2024 BMI 29.68 kg/m2 08/11/2024 Encounters Encounter Location Date Provider Diagnosis [facility] [facility] [address] [place] [phone] 08/11/2024 Rosalia Guzman Dysuria R30.0 Assessments Encounter Date Diagnosis (ICD Code) Assessment Notes Treatment Notes Treatment Clinical Notes Section Notes 08/11/2024 Dysuria (ICD-10 - R30.0) Plan Of Treatment Medication Medication Name Sig Start Date Stop Date Notes Nitrofurantoin Monohyd Macro 100 MG 1 capsule with food Orally Two times a day 08/11/2024 Next Appt Details Follow Up: prn, Reason: Provider Name:Nii Leta Barrera ry, 04/14/2025 10:15:00 AM, [address], [place], [id number], Progress Notes * NORMA CARBALLOOB:1985 (39 yo F)Acc No.[id number]:08/11/2024 Progress Notes Patient: PACHECO COONEY Provider: Rosalia Guzman M.D. :1985 A ge:39 Y S ex:Female Date:08/11/2024 Address:[address] [place] [address] [place], [id number] Subjective: * Chief Complaints: * 1 . poss UTI. * HPI: U rology: 39 year old female presents with c/o frequent urination. c/o burning sensation. c/o fever P t sts she did have a low fever yesterday. Denies : urgency. D enies : Difficulty urinating. D enies : Urine Odor. Pt sts her symptoms started a few days ago. She has been using OTC Azo which has helped with her dysuria. L ower back: c/o Low Back Pain P t sts the back pain started yesterday.? * ROS: D ERMATOLOGY: no R fernando. [...] use: yes. Marital Status: . 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 Past smoking status: no, h/o smoking x [...] Suspension 1 spray(s) intranasally twice daily , Medication List reviewed and reconciled with the patient * Allergies: N .K.D.A. Objective: * Vitals: W t:178.4, Temp:98.0, BP:130/90, HR:109, O2 Sat:100% on RA, Nurse:HANNA, Ht: 65, BMI:29.68. * Examination: G eneral Examination: General Appearance: N AD. A bdomen: S oft and nondistended. Mild suprapubic tenderness.. Assessment: * Assessment: 1. D ysuria - R30.0 (Primary) Plan: * Treatment: Value Reference Range C olor/Clarity yellow cloudy * L euk neg * N itrite neg * U robili 3.2 * P rotein neg * p H 5.5 * B lood neg * S p. Gr. 1.025 * K etone neg * B rachel neg * G noah neg * Ivet Valerio 08/11/2024 9:42:5 8 AM > Provider reviewed results while patient in office. * Procedure Codes: 8 1002 Urinalysis, no micro * Follow Up: p rn * Images: Billing Information: * Visit Code: 72458 Office Visit, Est Pt., Level 4. * Procedure Codes: 16096 Urinalysis, no micro. * Electronic signature of Rosalia Guzman MD on 03/17/2025 at 12:56 PM EDT Sign off status: Pending * Provider: Rosalia Guzman M.D. Date: 0 08/11/2024 Generated for Ayanna springer/Jim/eTransmitting on: 0 03/17/2025 12:56 PM EDT History and Physical Notes * HPI (History of Present Illness) Category Sub-Category Detail Notes Category Not es Lower back Low Back Pain Pt sts the back pain starte d yesterday Urology frequent urination Pt sts he r symptoms started a few days ago. She has been using OTC Azo which has helped with her dysuria. burning sensation fever Pt sts she did have a low fever yesterday urgency Difficulty urinating Urine Odor Examination Category Sub-Category Detail Notes Category Not es General Examination Abdomen: Soft and non distended. Mild suprapubic tenderness. General Appearance: NAD
--- OUTSIDE RECORDS SUMMARY | 2025-02-15 06:00 | XMS_ITS ---
Author Organization [facility] Address [address] [facility] [address] [place] [id number] Care Team Providers Care Tack Picker Name Role Phone Rosalia Guzman Primary Care Provider Nii Dominguez Unavailable [phone] Allergies No Known Allergies Results Component Value Reference Range Notes CBC Venipuncture (in house) Reviewed date:02/16/2025 08:12:44 AM Interpretation:Normal Performing Lab: Notes/Report: Normal wbc 7.2 3.5 - 10 lymph 25.3% 15 - 50 mid 6.0% 2 - 15 gran 68.7% 35 - 80 rbc 4.94 3.5 - 5.5 hgb 11.6 11.5 - 16.5 hct 35.3 35 - 55 mcv 71.5 75 - 100 mch 23.5 25 - 35 mchc 32.9 31 - 38 platlet 350 100 - 400 P-Basic Metabolic Panel (BMP ) Reviewed date:02/16/2025 08:12:43 AM Interpretation:Normal Performing Lab: Notes/Report: Test performed by [facility] [address] [place] [address] , [address], [place] [address] Lázaro Vega MD, Grader Tender CLIA: [id number] Sodium 139 135-145 mmol/L Potassium 4.5 3.5-5.3 mmol/L Chloride 106 97-108 mmol/L CO2 23 20-32 mmol/L Glucose 91 65-99 mg/dL BUN 12 6-20 mg/dL Creatinine 0.71 0.50-1.00 mg/dL Calcium 9.2 8.6-10.4 mg/dL eGFR by Creatinine 109 >59 mL/min/1.73m2 P-Lipid Panel Reviewed date:02/16/2025 08:12:43 AM Interpretation:Trigs 192 Performing Lab: Notes/Report: Test performed by [facility] [address], [place] [address] Lázaro Vega MD, Grader Tender CLIA: [id number] Cholesterol 173 <200 mg/dL Triglycerides 192 <150 mg/dL HDL Cholesterol 45 >39 mg/dL Cholesterol / HDL Ratio 3.84 0.00-4.44 Ratio Non-HDL Cholesterol 128 <130 mg/dL LDL Cholesterol (Calculation) 90 <130 mg/dL LDL Cholesterol Levels* Less than 100 mg/dL Optimal 100 to 129 mg/dL Near Optimal/ Above Optimal 130 to 159 mg/dL Borderline High 160 to 189 mg/dL High 190 mg/dL and above Very High * Categories as recommended by the 2004 ATPIII guidelines LDL/HDL Ratio 2.0 <3.3 Ratio LDL Cholesterol Patient History Test Date: 02/15/2025 LDL Results: 90 Units: mg/dL % Change: - P-TSH reflex to FT4 Reviewed date:02/16/2025 08:12:43 AM Interpretation:Normal Performing Lab: Notes/Report: Test performed by [facility] [address] [facility] [address], [place] [address] Lázaro Vega MD, Grader Tender CLIA: [id number] TSH reflex to FT4 0.95 0.43-5.25 mU/L P-Uric Acid Reviewed date:02/16/2025 08:12:44 AM Interpretation:Normal Performing Lab: Notes/Report: Test performed by [facility] [address] [place] [address] , [address], [place] [address] Lázaro Vega MD, Grader Tender CLIA: [id number] Uric Acid 4.1 2.4-7.0 mg/dL REASON FOR VISIT check up, [facility] f/u Medications Medication SIG (Take, Route, Frequency, Duration) Notes Start Date End Date Status Magnesium 250 MG 1 tablet with a meal Orally Once a day; Duration: 30 day(s) Active Multivitamin Women - as directed Orally Active Triamcinolone Acetonide 0.1 % 1 application Externally Twice a day Active Fluticasone Propionate 50 MCG/ACT 1 spray(s) intranasally twice daily 12/09/2017 Active Loratadine 10 MG 1 tab(s) orally once a day Active Lisinopril 10 MG 1 tablet Orally Once a day; Duration: 90 days 02/15/2025 Active Problems Problem Type SNOMED Code ICD Code Onset Dates Problem Status W/U Status Risk Notes Problem Essential hypertension (86797929) Essential hypertension (I10) Active confirmed Vital Signs Blood pressure systolic 160 mm Hg 02/16/20 25 Blood pressure diastolic 90 mm Hg 025 Heart Rate 93 /min 02/15/2025 Height 65 in 02/15/2025 Weight 173.6 lbs 02/15/2025 BMI 28.89 kg/m2 02/15/2025 Encounters Encounter Location Date Provider Diagnosis [facility] [address] [facility] [address] [place], [place] [id number] 02/15/2025 Nii Dominguez Essential hypertensi on I10 and BMI 28.0-28.9,adult Z68.28 Assessments Encounter Date Diagnosis (ICD Code) Assessment Notes Treatment Notes Treatment Clinical Notes Section Notes 02/15/2025 Essential hypertension (ICD-10 - I10) 02/15/2025 BMI 28.0-28.9,adult (ICD-10 - Z68.28) Plan Of Treatment Medication Medication Name Sig Start Date Stop Date Notes Lisinopril 10 MG 1 tablet Orally Once a day; Duration: 90 days 02/15/2025 Next Appt Details Follow Up: 3 or 4 Weeks, Lyubov son: Provider Name:Nii Barrera ry, 04/14/2025 10:15:00 AM, [address], [address], [place], [id number], Progress Notes * NORMA CARBALLOOB:1985 (39 yo F)Acc No.[id number]:02/15/2025 Progress Notes Patient: PACHECO COONEY Provider: Daniel Dominguez M.D. :1985 A ge:39 Y S ex:Female Date:02/15/2025 [facility] [id number] Pcp:Rosalia Guzman Subjective: * Chief Complaints: * 1 . check up, [facility] f/u. * HPI: H PI: 39 year old female presents with c/o Here for follow up on:?02/01/2025 [facility] visit. Pt went to [facility] for rash on earlobes and behind neck. Pt dx with contact dermatitis. Pt states she has been using rx'd ointment and rash is gone. Pt states that her bp was really high when checked at [facility] and pt is concerned . * ROS: D ERMATOLOGY: no R fernando. n o H ibrahima. G ASTROENTEROLOGY: no N ausea. n o V omiting. U ROLOGY: no D ifficulty urinating. n o B lood in urine. * Medical History: K nee Problems, Allergic Rhinitis. * Surgical History: D enies Past Surgical History. * Hospitalization/Major Diagno stic Procedure: H ER - Allergies . * Family History: F ather: alive. M other: alive. P aternal Grand Father: . P aternal Grand Mother: . M aternal Grand Father: . M aternal Grand Mother: alive. 4 brother(s) , 1 sister(s) . . 1 brother -electric accident. * Social History: C affeine: yes. Home smoke detector use: yes. Marital Status: . 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 Past smoking status: no, h/o smoking x 4-5 years. Alcohol: Yes, occasionally, Beer. Sexually active: no.. Travel ouside [place]: no. * Medications: T aking Triamcinolone Acetonide 0.1 % Ointment 1 application Externally Twice a day , Taking Magnesium 250 MG Tablet 1 tablet with a meal Orally Once a day , Taking Multivitamin Women - Tablet as directed Orally , Taking Loratadine 10 MG Tablet 1 tab(s) orally once a day , Taking Fluticasone Propionate 50 MCG/ACT Suspension 1 spray(s) intranasally twice daily , Discontinued Nitrofurantoin Monohyd Macro 100 MG Capsule 1 capsule with food Orally Two times a day , Medication List reviewed and reconciled with the patient * Allergies: N .K.D.A. Objective: * Vitals: W t: 173.6, Temp: 97.6, BP: 160/90, HR: 93, Nurse: fely, Ht: 65, BMI:28.89. * Examination: G eneral Examination: General Appearance: N AD. H eart: R SR. L ungs:?clear to auscultation. Assessment: * Assessment: 1. E ssential hypertension - I10 (Primary) 2 . B TN 28.0-28.9,adult - Z68.28 Plan: * Treatment: Value Reference Range B UN 12 6-20 - mg/dL * C alcium 9.2 8.6-10.4 - mg/dL * C hloride 106 97-108 - mmol/L * C O2 23 20-32 - mmol/L * C reatinine 0.71 0.50-1.00 - mg/dL * G lucose 91 65-99 - mg/dL * P otassium 4.5 3.5-5.3 - mmol/L * S odium 139 135-145 - mmol/L * e GFR by Creatinine 109 >59 - mL/min/1.73m2 * Renée Ji 02/16/2025 08: 12:36 AM EDT > See phone encounter ?LAB: P-Lipid Panel (Collection Date & Time - 02/15/2025 10:00 AM)?Trigs 192 * Value Reference Range C holesterol / HDL Ratio 3.84 0.00-4.44 - Ratio * C holesterol 173 <200 - mg/dL * H DL Cholesterol 45 >39 - mg/dL * L DL Cholesterol (Calculation) 90 <130 - mg/d L * L DL/HDL Ratio 2.0 <3.3 - Ratio * N on-HDL Cholesterol 128 <130 - mg/dL * T riglycerides 192 H <150 - mg/dL * Renée Ji 02/16/2025 08: 12:36 AM EDT > See phone encounter ?LAB: P-TSH reflex to FT4 (Collection Date & Time - 02/15/2025 10:00 AM)? Normal* Value Reference Range T SH reflex to FT4 0.95 0.43-5.25 - mU/L * Renée Ji 02/16/2025 08: 12:36 AM EDT > See phone encounter ?LAB: P-Uric Acid (Collection Date & Time - 02/15/2025 10:00 AM)?Normal* Value Reference Range U dionte Acid 4.1 2.4-7.0 - mg/dL * Renée Ji 02/16/2025 08: 12:36 AM EDT > See phone encounter ?LAB: CBC Venipuncture (in house) (Collection Date & Time - 02/15/2025)? Normal* Value Reference Range w bc 7.2 3.5 - 10 * l ymph 25.3% 15 - 50 * m id 6.0% 2 - 15 * g ran 68.7% 35 - 80 * r bc 4.94 3.5 - 5.5 * h gb 11.6 11.5 - 16.5 * h ct 35.3 35 - 55 * m cv 71.5 75 - 100 * m ch 23.5 25 - 35 * m chc 32.9 31 - 38 * p latlet 350 100 - 400 * Ximena Mcnamara 02/15/2025 10:56: 50 AM EDT > Renée Ji 02/16/2025 08:12:36 AM EDT > See phone encounter * Procedure Codes: 8 5025 CBC WITH AUTO DIFF, 3077F SYST BP = 140 MM HG6 IT, 3080F DIAST BP = 90 MM HG * Follow Up: 3 or 4 Weeks * Images: Billing Information: * Visit Code: 63249 Office Visit, Est Pt., Level 3. * Procedure Codes: 22527 CBC WITH AUTO DIFF. 3077F SYST BP = 140 MM HG6 IT. 3080F DIAST BP = 90 MM HG. * Electronic signature of Merary Dominguez MD on 03/17/2025 at 12:56 PM EDT Sign off status: Pending * Provider: Daniel Dominguez M.D. Date: 0 02/15/2025 Generated for Ayanna springer/Jim/Enedeliaitting on: 0 03/17/2025 12:56 PM EDT History and Physical Notes * HPI (History of Present Illness) Category Sub-Category Detail Notes Category Not es HPI Here for follow up on: 5 [facility] visit. Pt went to [facility] for rash on earlobes and behind neck. Pt dx with contact dermatitis. Pt states she has been using rx'd ointment and rash is gone. Pt states that her bp was really high when checked at [facility] and pt is concerned Examination Category Sub-Category Detail Notes Category Not es General Examination Heart: RSR Lungs: clear to auscultatio n General Appearance: NAD
--- OUTSIDE RECORDS SUMMARY | 2025-03-01 05:52 | XMS_ITS ---
Author Organization [facility] Address [address] [facility] 36 [facility] [address] [place] [id number] Care Team Providers Care Medical Instrument Cable Fabricator Name Role Phone Rosalia Guzman Primary Care Provider REASON FOR VISIT due lon Encounters Encounter Location Date Provider Diagnosis [facility] [address] [place] [id number] 03/01/2025 Rosalia Guzman Breast cancer screening Z12.31 Assessments Encounter Date Diagnosis (ICD Code) Assessment Notes Treatment Notes Treatment Clinical Notes Section Notes 03/01/2025 Breast cancer screening (ICD-10 - Z12.31) Plan Of Treatment Pending Test Test Name Order Date Mammogram 03/01/2025 Next Appt Details Provider Name:Nii Barrera ry, 04/14/2025 10:15:00 AM, [address], [address], [place], [id number], Progress Notes * ROXIE CARBALLONATALYAOB:1985 (39 yo F)Acc No.[id number]:03/01/2025 Patient: ROXIE COONEYY :1985 A ge:39 Y S ex:Female Address:[place] [address] Subjective: * Chief Complaints: * D ue lon * Medical History: * Surgical History: * Hospitalization/Major Diagno stic Procedure: * Medications: Objective: * Vitals: * Physical Examination: Assessment: * Assessment: 1. B reast cancer screening - Z12.31 (Primary) Plan: * Treatment: * Procedure Codes: * true * Date: Generated for Ayanna springer/Jim/Angelita on: 0 03/17/2025 12:57 PM EDT
--- NOTE | 2025-03-17 12:56 | MM_ITS ---
PROCEDURE INFORMATION: Exam: MG Bilateral Screening 3D Mammography Exam date and time: 03/17/2025 1:04 PM Age: 39 years old Clinical indication: Screening examination TECHNIQUE: Imaging protocol: Bilateral Screening tomosynthesis and 2D mammography including computer-aided detection (CAD) when performed. COMPARISON: No relevant prior studies available. FINDINGS: MAMMOGRAPHY: Breast composition: There are scattered areas of fibroglandular density. Mass: No suspicious masses. Architectural distortion: None. Calcifications: No suspicious calcifications. Asymmetric density: None. Skin thickening: None. Axillary adenopathy: None. IMPRESSION: No mammographic evidence of malignancy. Annual screening is recommended unless otherwise clinically indicated. ASSESSMENT: BI-RADS Category 1: Negative.
--- OUTSIDE RECORDS SUMMARY | 2025-03-17 12:56 | XMS_ITS | Patient Health Record ---
Author Organization [facility] 12[address] [facility] [address] [place] [phone] Care Team Providers Care Bioinformaticist Name Role Phone Rosalia Guzman Primary Care Provider Alberto Nii Unavailable [phone] Christiana Rodgers Unavailable [phone] Allergies No Known Allergies Results Component Value Reference Range Notes Influenza Screen (in house) Reviewed date:05/26/2024 03:38:37 PM Interpretation:pos Flu A Performing Lab: Notes/Report: pos Flu A results pos Flu A Rapid Strep- Inhouse Reviewed date:05/26/2024 03:38:47 PM Interpretation:neg Performing Lab: Notes/Report: neg strep test neg Covid test (in house) Reviewed date:05/26/2024 03:38:26 PM Interpretation:neg Performing Lab: Notes/Report: neg Result: neg Urinalysis - Inhouse Reviewed date:08/11/2024 10:37:18 AM Interpretation: Performing Lab: Notes/Report: Color/Clarity yellow cloudy Leuk neg Nitrite neg Urobili 3.2 Protein neg pH 5.5 Blood neg Sp. Gr. 1.025 Ketone neg Bili neg Gluc neg CBC Venipuncture (in house) Reviewed date:02/16/2025 08:12:44 [...] Interpretation:Normal Performing Lab: Notes/Report: Test performed by [facility] [address] [place] [address] [place] [address] Lázaro Vega MD, Truck Body Repairer CLIA: [id number] Sodium 139 135-145 mmol/L Potassium 4.5 3.5-5.3 mmol/L Chloride 106 97-108 mmol/L CO2 23 20-32 mmol/L Glucose 91 65-99 mg/dL BUN 12 6-20 mg/dL Creatinine 0.71 0.50-1.00 mg/dL Calcium 9.2 8.6-10.4 mg/dL eGFR by Creatinine 109 >59 mL/min/1.73m2 P-Lipid Panel Reviewed date:02/16/2025 08:12:43 AM Interpretation:Trigs 192 Performing Lab: Notes/Report: Test performed by [facility] [address] [place] [address] [address], [place] [address] Lázaro Vega MD, Truck Body Repairer CLIA: [id number] Cholesterol 173 <200 mg/dL Triglycerides 192 <150 [...] Interpretation:Normal Performing Lab: Notes/Report: Test performed by [facility] [address] [place], [place] [address] [place] , [place] [address] Lázaro Vega MD, Truck Body Repairer CLIA: [id number] TSH reflex to FT4 0.95 0.43-5.25 mU/L P-Uric Acid Reviewed date:02/16/2025 08:12:44 AM Interpretation:Normal Performing Lab: Notes/Report: Test performed by [facility] [address] [place] [address] , [address] , [place] [address] Lázaro Vega MD, Truck Body Repairer CLIA: [id number] Uric Acid 4.1 2.4-7.0 mg/dL Reason For Referral No Information Medications Medication SIG (Take, Route, Frequency, Duration) Notes Start Date End Date Status Moxifloxacin HCl 0.5 % 1 drop into affec flory eye Ophthalmic Three times a day; Duration: 7 days 03/17/2025 Active Lisinopril 20 MG 1 tablet Orally Once a day; Duration: 90 days 03/17/2025 Active Fluticasone Propionate 50 MCG/ACT 1 spray(s) intranasally twice daily 12/09/2017 Active Loratadine 10 MG 1 tab(s) orally once a day Active Multivitamin Women - as directed Orally Active Magnesium 250 MG 1 tablet with a meal Orally Once a day; Duration: 30 day(s) Active Immunizations Vaccine Route Administration Date Status Comme nts Fluzone PF Quad (6-35 months) Unknown 04/29/2017 Admini stered Problems Problem Type SNOMED Code ICD Code Onset Dates Problem Status W/U Status Risk Notes Problem Essential hypertension (38257637) Essential hypertension (I10) Active confirmed Problem Otitis externa (7318406) Otitis externa (H60.90) Active confirmed Problem Sciatica (37298465) Lumbago with sciatica, left side (M54.42) Active confirmed Problem Constipation (01477649) Constipation, unspecified constipation type (K59.00) Active confirmed Vital Signs Heart Rate 83 /min 03/17/2025 Blood pressure diastolic 80 mm Hg 03/17/2025 Height 65 in 03/17/2025 Blood pressure systolic 142 mm Hg 03/17/2025 Weight 174.4 lbs 03/17/2025 BMI 29.02 kg/m2 03/17/2025 Encounters Encounter Location Date Provider Diagnosis [facility] [facility] [facility] [address] [place], [place] [phone] 05/26/2024 Christiana Rodgers Influenza A J10.1 [facility] [address] [place], [place] [phone] 08/11/2024 Rosalia Guzman Dysuria R30.0 [facility] [address] [facility] [address] [place], [place] [phone] 02/15/2025 Nii Clifton Essential hypertensi on I10 and BMI 28.0-28.9,adult Z68.28 [facility] [address] [facility] [address] [place], [place] [phone] 03/17/2025 Nii Clifton Essential hypertensi on I10 and Acute conjunctivitis of right eye, unspecified acute conjunctivitis type H10.31 [facility] [address] [facility] [address] [place], [place] [phone] 02/16/2025 Nii Clifton [facility] [address] [place], [place] [phone] 03/01/2025 Rosalia Guzman Breast cancer screen ing Z12.31 Assessments Encounter Date Diagnosis (ICD Code) Assessment Notes Treatment Notes Treatment Clinical Notes Section Notes 05/26/2024 Influenza A (ICD-10 - J10.1) fluids, rest, supportive measures for fever/symptom relief 08/11/2024 Dysuria (ICD-10 - R30.0) 02/15/2025 Essential hypertension (ICD-10 - I10) 02/15/2025 BMI 28.0-28.9,adult (ICD-10 - Z68.28) 03/01/2025 Breast cancer screening (ICD-10 - Z12.31) 03/17/2025 Essential hypertension (ICD-10 - I10) 03/17/2025 Acute conjunctivitis of right eye, unspecified acute conjunctivitis type (ICD-10 - H10.31) Plan Of Treatment Pending Test Test Name Order Date Mammogram 03/01/2025 Next Appt Details Provider Name:Nii Barrera ry, 04/14/2025 10:15:00 AM, [address], [address], [place], [place], [id number], Insurance Providers Payer Name Payer Address Payer Phone Subscriber Number Group Number Insured Name Patient Relationship to Insured Coverage Start Date Coverage End Date [employer] [facility] [address] [place] [address] [id number] PACHECO CARBALLO Self - patient is the insured Medications Administered Medication Instructions Date of Administration Dosage Notes Dexamethasone 04/27/2009 1 mL Medical (General) History Medical History History ICD Code Knee Problems Allergic Rhinitis Surgical History Surgery Date(Month/Year) Hospitalization History Reason Date(Month/Year) [facility] ER - Allergies
== END 2025-03-17 23:59 | disposition home or self-care (01) ==
LOC: RAD 12:51
PROVIDERS: PCP Family Medicine; Visit Provider Family Medicine
DX: Z12.31 Encounter for screening mammogram for malignant neoplasm of breast (principal); R92.323 Mammographic fibroglandular density, bilateral breasts
CPT/HCPCS: 77063; 77067